=== PATIENT | male | born 1940 | race Caucasian/White ===

== ENCOUNTER 2021-02-07 02:19 | Inpatient (IN) | payer OTHER ==
[~2021-02-07] VITALS: Ht 190.5 cm; Wt 136.9 kg
--- NOTE | 2021-02-07 02:38 | NUR ---
pt bib [facility], pt complaint of weakness and multiple falls tonight, [facility] [place] di[facility] [place]. pt in gown, on gurney and placed on continuous monitoring.
--- NOTE | 2021-02-07 02:49 | NUR ---
PT AT CT
[2021-02-07 02:52] LABS: BASOPHILS % (AUTO) 1 % (0-1); EOSINOPHILS % (AUTO) 1 % (1-7); LYMPHOCYTES % (AUTO) 21 % (22-44); MEAN CORPUSCULAR HEMOGLOBIN 32.7 pg (27.5-34.5); MEAN CORPUSCULAR HGB CONC 33.4 g/dL (33.2-36.2); MEAN PLATELET VOLUME 9.1 fL (7.4-10.4); MONOCYTES % (AUTO) 2 % (2-9); NEUTROPHILS % (AUTO) 75 % (42-75); PLATELET COUNT 86 x10^3/uL (130-400); RED BLOOD COUNT 3.63 x10^6/uL (4.38-5.82); RED CELL DISTRIBUTION WIDTH 14.5 % (9.4-14.8)
[2021-02-07 03:03] LABS: ALBUMIN 2.4 g/dL (3.4-5.0); ANION GAP 10 mmol/L (5-15); CALCIUM 8.8 mg/dL (8.5-10.1); CHLORIDE 112 mmol/L (98-107); CREATININE 2.59 mg/dL (0.7-1.3)
--- NOTE | 2021-02-07 03:03 | NUR ---
pt back from ct, xray present at bedside.
[2021-02-07 03:07] LABS: TROPONIN I < 0.015 ng/mL (0.000-0.045)
--- NOTE | 2021-02-07 03:30 | NUR ---
PT FAILED SWALLOW EVAL, COUGHED A FEW TIMES AFTER DRINKING WATER
--- NOTE | 2021-02-07 03:32 | NUR ---
22 G IV in right forearm
[2021-02-07] MEDS ORDERED: WARF2TAB99 PO (03:39)
[2021-02-07] MEDS ORDERED: ALLO300T PO (03:39)
[2021-02-07] MEDS ORDERED: CALC-171 PO (03:39)
[2021-02-07] MEDS ORDERED: TAMS-11 PO (03:39)
[2021-02-07] MEDS ORDERED: ATOR20TA37 PO (03:39)
[2021-02-07] MEDS ORDERED: METO25TA35 PO (03:39)
[2021-02-07 04:07] LABS: INTERNATIONAL NORMALIZED RATIO 2.79 (0.93-1.1)
[2021-02-07 04:21] LABS: PROTHROMBIN TIME 29.3 Seconds (9.6-11.5)
--- NOTE | 2021-02-07 04:22 | NUR ---
PT ON BEDPAN, CLEANED UP AND REPOSITIONED ON JACOB, DENIES NEEDS AT THIS TIME
[2021-02-07] MEDS ORDERED: SODIUM CHLORIDE 0.9% 1,000ML IVBOLUS ONE (04:30)
--- NOTE | 2021-02-07 05:00 | NUR ---
Pt to be admitted to [facility], room 503. Report called to JUAN MARTÍNEZ.
[2021-02-07 05:01] LABS: MICROSCOPIC INDICATED
[2021-02-07] MEDS ORDERED: DOCUSATE 100 MG CAPSULE PO PRN (05:30)
[2021-02-07] MEDS ORDERED: morphine SULFATE 10 MG/ML, 1ML IVPush PRN (05:30)
[2021-02-07] MEDS ORDERED: HYDROcodone/APAP 5/325 TABLET PO PRN (05:30)
[2021-02-07] MEDS ORDERED: BACLOFEN 10 MG TABLET PO PRN (05:30)
[2021-02-07] MEDS ORDERED: ONDANSETRON 2MG/ML, 2ML IVPush PRN (05:30)
[2021-02-07] MEDS ORDERED: ENALAPRILAT 1.25 MG/ML, 2ML IVPush PRN (05:30)
[2021-02-07] MEDS ORDERED: TEMAZEPAM 15 MG CAPSULE PO PRN (05:30)
[2021-02-07] MEDS ORDERED: GUAIFENESIN/DM 200-20MG, 10ML UDC PO PRN (05:30)
[2021-02-07] MEDS ORDERED: ACETAMINOPHEN 325 MG TABLET PO PRN (05:30)
[2021-02-07 06:15] VITALS: BP 116/69
[2021-02-07 07:08] VITALS: BP 104/78
[2021-02-07] MEDS ORDERED: FUROSEMIDE 40 MG/4 ML IV SCH (07:30)
[2021-02-07] MEDS ORDERED: METOPROLOL TARTRATE 25 MG TAB PO SCH ×2 (09:00→18:00)
[2021-02-07] MEDS: CALCIUM/VITAMIN D3 250-125 TABLET PO SCH ×3 (10:10→20:38)
[2021-02-07] MEDS: TAMSULOSIN 0.4 MG CAP.ER.24H PO SCH (10:10)
[2021-02-07] MEDS ORDERED: FUROSEMIDE 40 MG/4 ML IV ONE (10:30)
[2021-02-07] MEDS: METOPROLOL TARTRATE 25 MG TAB PO SCH ×2 (11:38→18:20)
[2021-02-07 12:54] VITALS: BP 103/67
[2021-02-07 13:09] LABS: OCCULT BLOOD POSITIVE (NEGATIVE)
[2021-02-07 13:31] LABS: STOOL FOR LEUKOCYTES NONE SEEN (NEGATIVE)
[2021-02-07 13:33] LABS: CLOSTRIDIUM DIFFICILE ANTIGEN NEGATIVE; CLOSTRIDIUM DIFFICILE TOXIN NEGATIVE (Negative)
[2021-02-07] MEDS: WARFARIN 2 MG TABLET PO-COUM SCH (18:22)
[2021-02-07 19:12] VITALS: BP 109/66
[2021-02-07] MEDS: ATORVASTATIN 20 MG TABLET PO SCH (20:38)
[2021-02-08 01:37] VITALS: BP 110/67
[2021-02-08 05:08] LABS: BASOPHILS % (AUTO) 1 % (0-1); EOSINOPHILS % (AUTO) 2 % (1-7); LYMPHOCYTES % (AUTO) 33 % (22-44); MEAN CORPUSCULAR HEMOGLOBIN 33.2 pg (27.5-34.5); MEAN PLATELET VOLUME 10.6 fL (7.4-10.4); MONOCYTES % (AUTO) 5 % (2-9); NEUTROPHILS % (AUTO) 59 % (42-75); PLATELET COUNT 66 x10^3/uL (130-400); RED BLOOD COUNT 3.47 x10^6/uL (4.38-5.82); RED CELL DISTRIBUTION WIDTH 14.8 % (9.4-14.8)
[2021-02-08] MEDS: METOPROLOL TARTRATE 25 MG TAB PO SCH (05:10)
[2021-02-08 05:19] LABS: CHLORIDE 113 mmol/L (98-107)
[2021-02-08 05:30] LABS: ALANINE AMINOTRANSFERASE 29 U/L (12-78); ALBUMIN 2.2 g/dL (3.4-5.0); ALKALINE PHOSPHATASE 106 U/L (45-117); ANION GAP 8 mmol/L (5-15); BILIRUBIN,TOTAL 0.3 mg/dL (0.2-1.0); CALCIUM 8.9 mg/dL (8.5-10.1); TOTAL PROTEIN 5.2 g/dL (6.4-8.2)
[2021-02-08 06:52] VITALS: BP 105/64
[2021-02-08] MEDS ORDERED: SODIUM CHLORIDE 0.9%, 500ML IVBOLUS ONE ×2 (07:30→15:00)
[2021-02-08] MEDS ORDERED: METOLAZONE 5 MG TABLET PO SCH (07:30)
[2021-02-08] MEDS: TAMSULOSIN 0.4 MG CAP.ER.24H PO SCH (07:40)
[2021-02-08] MEDS: CALCIUM/VITAMIN D3 250-125 TABLET PO SCH ×3 (07:59→20:32)
[2021-02-08] MEDS ORDERED: PHYTONADIONE 10 MG/ML, 1ML IM ONE (08:00)
[2021-02-08] MEDS ORDERED: FUROSEMIDE 40 MG/4 ML IV SCH (09:00)
[2021-02-08 09:05] LABS: INTERNATIONAL NORMALIZED RATIO 3.87 (0.93-1.1)
[2021-02-08 09:32] LABS: PROTHROMBIN TIME 40.3 Seconds (9.6-11.5)
[2021-02-08 14:00] VITALS: BP 104/64
[2021-02-08] MEDS: SODIUM CHLORIDE 0.9% 1,000 ML IV SCH (14:56)
[2021-02-08] MEDS ORDERED: GOLYTELY 4,000ML ORAL.SOL PO SCH (15:00)
[2021-02-08 18:31] VITALS: BP 116/70
[2021-02-08] MEDS: ATORVASTATIN 20 MG TABLET PO SCH (20:32)
[2021-02-09 00:59] VITALS: BP 95/52
[2021-02-09] MEDS: SODIUM CHLORIDE 0.9% 1,000 ML IV SCH ×2 (04:20→16:38)
[2021-02-09 05:42] LABS: CHLORIDE 115 mmol/L (98-107)
[2021-02-09 05:47] LABS: ALANINE AMINOTRANSFERASE 42 U/L (12-78); ALKALINE PHOSPHATASE 113 U/L (45-117); ANION GAP 7 mmol/L (5-15); CALCIUM 8.1 mg/dL (8.5-10.1); CREATININE 1.79 mg/dL (0.7-1.3); TOTAL PROTEIN 5.1 g/dL (6.4-8.2)
[2021-02-09 06:05] LABS: BASOPHILS % (AUTO) 1 % (0-1); EOSINOPHILS % (AUTO) 2 % (1-7); LYMPHOCYTES % (AUTO) 29 % (22-44); MEAN CORPUSCULAR HEMOGLOBIN 33.1 pg (27.5-34.5); MEAN CORPUSCULAR HGB CONC 33.7 g/dL (33.2-36.2); MEAN PLATELET VOLUME 9.8 fL (7.4-10.4); MONOCYTES % (AUTO) 8 % (2-9); NEUTROPHILS % (AUTO) 60 % (42-75); PLATELET COUNT 55 x10^3/uL (130-400); RED BLOOD COUNT 3.19 x10^6/uL (4.38-5.82); RED CELL DISTRIBUTION WIDTH 14.4 % (9.4-14.8)
[2021-02-09 06:50] VITALS: BP 106/63
[2021-02-09] MEDS ORDERED: PHYTONADIONE 10 MG/ML, 1ML IM ONE (07:00)
[2021-02-09] MEDS: CALCIUM/VITAMIN D3 250-125 TABLET PO SCH ×3 (07:18→20:19)
[2021-02-09] MEDS: TAMSULOSIN 0.4 MG CAP.ER.24H PO SCH (07:50)
[2021-02-09 07:54] LABS: INTERNATIONAL NORMALIZED RATIO 1.79 (0.93-1.1); PROTHROMBIN TIME 18.9 Seconds (9.6-11.5)
[2021-02-09 12:58] VITALS: BP 107/65
[2021-02-09] MEDS ORDERED: PROPOFOL 10 MG/ML, 20ML ONE (14:27)
[2021-02-09] MEDS ORDERED: FENTANYL PF 100 MCG/2ML IV PRN (15:00)
[2021-02-09] MEDS ORDERED: OXYcodone 5 MG/5 ML ORAL.SOL UDC PO PRN (15:00)
[2021-02-09] MEDS ORDERED: ACETAMINOPHEN 325 MG TABLET PO PRN (15:00)
[2021-02-09 19:27] VITALS: BP 103/63
[2021-02-09] MEDS: ATORVASTATIN 20 MG TABLET PO SCH (20:18)
[2021-02-09 23:22] VITALS: BP 103/59
[2021-02-10 05:07] LABS: BASOPHILS % (AUTO) 0 % (0-1); EOSINOPHILS % (AUTO) 2 % (1-7); LYMPHOCYTES % (AUTO) 29 % (22-44); MEAN CORPUSCULAR HEMOGLOBIN 32.9 pg (27.5-34.5); MEAN CORPUSCULAR HGB CONC 34.1 g/dL (33.2-36.2); MEAN PLATELET VOLUME 10.4 fL (7.4-10.4); MONOCYTES % (AUTO) 10 % (2-9); NEUTROPHILS % (AUTO) 60 % (42-75); PLATELET COUNT 55 x10^3/uL (130-400); RED CELL DISTRIBUTION WIDTH 14.3 % (9.4-14.8)
[2021-02-10 05:12] LABS: CHLORIDE 118 mmol/L (98-107)
[2021-02-10 05:29] LABS: ALANINE AMINOTRANSFERASE 40 U/L (12-78); ALBUMIN 1.9 g/dL (3.4-5.0); ALKALINE PHOSPHATASE 115 U/L (45-117); ANION GAP 7 mmol/L (5-15); CREATININE 1.56 mg/dL (0.7-1.3); TOTAL PROTEIN 4.6 g/dL (6.4-8.2)
[2021-02-10] MEDS: SODIUM CHLORIDE 0.9% 1,000 ML IV SCH (05:57)
[2021-02-10 07:02] VITALS: BP 95/56
[2021-02-10 08:14] LABS: INTERNATIONAL NORMALIZED RATIO 1.33 (0.93-1.1); PROTHROMBIN TIME 14.2 Seconds (9.6-11.5)
[2021-02-10] MEDS: TAMSULOSIN 0.4 MG CAP.ER.24H PO SCH (08:57)
[2021-02-10] MEDS: CALCIUM/VITAMIN D3 250-125 TABLET PO SCH ×3 (08:57→20:07)
[2021-02-10 12:19] VITALS: BP 109/68
[2021-02-10] MEDS: WARFARIN 2 MG TABLET PO-COUM SCH (17:36)
[2021-02-10 19:22] VITALS: BP 107/70
[2021-02-10] MEDS: ATORVASTATIN 20 MG TABLET PO SCH (20:07)
[2021-02-10 23:18] VITALS: BP 97/68
[2021-02-11] VITALS (9 sets, daily range): BP systolic 100–129; BP diastolic 55–90
[2021-02-11] MEDS: SODIUM CHLORIDE 0.9% 1,000 ML IV SCH (03:24)
[2021-02-11 06:09] LABS: BASOPHILS % (AUTO) 1 % (0-1); EOSINOPHILS % (AUTO) 3 % (1-7); LYMPHOCYTES % (AUTO) 35 % (22-44); MEAN CORPUSCULAR HEMOGLOBIN 32.9 pg (27.5-34.5); MEAN CORPUSCULAR HGB CONC 33.6 g/dL (33.2-36.2); MEAN PLATELET VOLUME 9.7 fL (7.4-10.4); MONOCYTES % (AUTO) 13 % (2-9); NEUTROPHILS % (AUTO) 49 % (42-75); RED BLOOD COUNT 3.19 x10^6/uL (4.38-5.82); RED CELL DISTRIBUTION WIDTH 14.6 % (9.4-14.8)
[2021-02-11 06:18] LABS: ANION GAP 6 mmol/L (5-15); CHLORIDE 120 mmol/L (98-107)
[2021-02-11 06:21] LABS: ALANINE AMINOTRANSFERASE 42 U/L (12-78); ALKALINE PHOSPHATASE 136 U/L (45-117); BILIRUBIN,TOTAL 0.9 mg/dL (0.2-1.0); CREATININE 1.51 mg/dL (0.7-1.3); TOTAL PROTEIN 4.9 g/dL (6.4-8.2)
[2021-02-11 06:22] LABS: PLATELET COUNT 41 x10^3/uL (130-400)
[2021-02-11] MEDS: CALCIUM/VITAMIN D3 250-125 TABLET PO SCH ×3 (08:44→21:26)
[2021-02-11] MEDS: TAMSULOSIN 0.4 MG CAP.ER.24H PO SCH (08:44)
[2021-02-11 12:08] LABS: HCT (SEDRATE) 28.6 % (39.2-51.8)
[2021-02-11 12:50] LABS: FIBRINOGEN 242 mg/dL (200-340); PARTIAL THROMBOPLASTIN TIME 30 Seconds (25-31)
[2021-02-11] MEDS ORDERED: SODIUM CHLORIDE 0.9% 1,000 ML IV SCH (15:00)
[2021-02-11] MEDS: WARFARIN 2 MG TABLET PO-COUM SCH (17:42)
[2021-02-11] MEDS: ATORVASTATIN 20 MG TABLET PO SCH (21:26)
[2021-02-12 05:33] VITALS: BP 119/77
[2021-02-12 07:40] LABS: BASOPHILS % (AUTO) 1 % (0-1); EOSINOPHILS % (AUTO) 5 % (1-7); LYMPHOCYTES % (AUTO) 36 % (22-44); MEAN CORPUSCULAR HEMOGLOBIN 32.7 pg (27.5-34.5); MEAN CORPUSCULAR HGB CONC 33.3 g/dL (33.2-36.2); MEAN PLATELET VOLUME 9.9 fL (7.4-10.4); MONOCYTES % (AUTO) 12 % (2-9); NEUTROPHILS % (AUTO) 46 % (42-75); PLATELET COUNT 56 x10^3/uL (130-400); RED BLOOD COUNT 3.17 x10^6/uL (4.38-5.82); RED CELL DISTRIBUTION WIDTH 14.4 % (9.4-14.8)
[2021-02-12 07:49] LABS: ALANINE AMINOTRANSFERASE 48 U/L (12-78); ANION GAP 4 mmol/L (5-15); CALCIUM 8.3 mg/dL (8.5-10.1); CHLORIDE 119 mmol/L (98-107); CREATININE 1.36 mg/dL (0.7-1.3)
[2021-02-12 07:51] LABS: ALKALINE PHOSPHATASE 135 U/L (45-117); BILIRUBIN,TOTAL 0.9 mg/dL (0.2-1.0); TOTAL PROTEIN 4.8 g/dL (6.4-8.2)
[2021-02-12] MEDS: TAMSULOSIN 0.4 MG CAP.ER.24H PO SCH (07:51)
[2021-02-12] MEDS: CALCIUM/VITAMIN D3 250-125 TABLET PO SCH ×3 (07:51→19:42)
[2021-02-12 08:38] VITALS: BP 103/65
[2021-02-12] MEDS: PANTOPRAZOLE 40MG TABLET PO SCH (10:04)
[2021-02-12 12:06] VITALS: BP 102/64
[2021-02-12 16:05] LABS: INTERNATIONAL NORMALIZED RATIO 1.17 (0.93-1.1); PROTHROMBIN TIME 12.4 Seconds (9.6-11.5)
[2021-02-12] MEDS ORDERED: WARFARIN 2 MG TABLET PO-COUM ONE (18:00)
[2021-02-12] MEDS ORDERED: WARFARIN 3 MG TABLET PO-COUM ONE (18:00)
[2021-02-12 18:26] VITALS: BP 104/61
[2021-02-12 19:17] VITALS: BP 104/61
[2021-02-12] MEDS: ATORVASTATIN 20 MG TABLET PO SCH (19:42)
[2021-02-13 00:56] VITALS: BP 100/64
[2021-02-13 04:59] LABS: HCT (SEDRATE) 27.5 % (39.2-51.8)
[2021-02-13 05:03] LABS: BASOPHILS % (AUTO) 1 % (0-1); EOSINOPHILS % (AUTO) 4 % (1-7); LYMPHOCYTES % (AUTO) 33 % (22-44); MEAN CORPUSCULAR HEMOGLOBIN 32.9 pg (27.5-34.5); MEAN CORPUSCULAR HGB CONC 34.1 g/dL (33.2-36.2); MEAN PLATELET VOLUME 10.3 fL (7.4-10.4); MONOCYTES % (AUTO) 12 % (2-9); NEUTROPHILS % (AUTO) 50 % (42-75); PLATELET COUNT 74 x10^3/uL (130-400); RED BLOOD COUNT 2.85 x10^6/uL (4.38-5.82); RED CELL DISTRIBUTION WIDTH 14.3 % (9.4-14.8)
[2021-02-13 05:10] LABS: INTERNATIONAL NORMALIZED RATIO 1.17 (0.93-1.1); PROTHROMBIN TIME 12.4 Seconds (9.6-11.5)
[2021-02-13 05:11] LABS: ALANINE AMINOTRANSFERASE 47 U/L (12-78); ALBUMIN 1.8 g/dL (3.4-5.0); ANION GAP 8 mmol/L (5-15); C-REACTIVE PROTEIN, QUANT 0.46 mg/dL (0.02-0.49); CALCIUM 7.9 mg/dL (8.5-10.1); CHLORIDE 115 mmol/L (98-107); CREATININE 1.36 mg/dL (0.7-1.3)
[2021-02-13 05:13] LABS: ALKALINE PHOSPHATASE 136 U/L (45-117); BILIRUBIN,TOTAL 0.7 mg/dL (0.2-1.0); TOTAL PROTEIN 4.6 g/dL (6.4-8.2)
[2021-02-13] MEDS: PANTOPRAZOLE 40MG TABLET PO SCH (06:17)
[2021-02-13] MEDS ORDERED: PANT40TA6 PO (08:00)
[2021-02-13] MEDS ORDERED: WARF2TAB99 PO (08:00)
[2021-02-13] MEDS ORDERED: METO25TA35 PO (08:00)
[2021-02-13 08:24] VITALS: BP 110/66
[2021-02-13] MEDS: CALCIUM/VITAMIN D3 250-125 TABLET PO SCH (09:00)
[2021-02-13] MEDS: TAMSULOSIN 0.4 MG CAP.ER.24H PO SCH (09:22)
[2021-02-13] MEDS ORDERED: WARFARIN 5 MG TABLET PO-COUM ONE (18:00)
== END 2021-02-13 14:44 | disposition home health service (06) | DRG 377 ==
LOC: ED 04:49 → EDIP 04:54 → 5SO 05:28
PROVIDERS: ADMIT Internal Medicine; ATTEND Family Medicine
PROC: 0DJD8ZZ Inspection of Lower Intestinal Tract, Via Natural or Artificial Opening Endoscopic (ICD-10-PCS; 2021-02-09)
PROC: 0DJ08ZZ Inspection of Upper Intestinal Tract, Via Natural or Artificial Opening Endoscopic (ICD-10-PCS; principal; 2021-02-09 14:00)
DX: K26.4 Chronic or unspecified duodenal ulcer with hemorrhage (principal); N17.0 Acute kidney failure with tubular necrosis; I13.0 Hypertensive heart and chronic kidney disease with heart failure and stage 1 through stage 4 chronic kidney disease, or unspecified chronic kidney disease; I48.20 Chronic atrial fibrillation, unspecified; M86.8X7 Other osteomyelitis, ankle and foot; E46 Unspecified protein-calorie malnutrition; I95.1 Orthostatic hypotension; Z20.822 Contact with and (suspected) exposure to COVID-19; D53.9 Nutritional anemia, unspecified; D50.9 Iron deficiency anemia, unspecified; D69.6 Thrombocytopenia, unspecified; E66.9 Obesity, unspecified; E78.5 Hyperlipidemia, unspecified; E87.8 Other disorders of electrolyte and fluid balance, not elsewhere classified; N18.30 Chronic kidney disease, stage 3 unspecified; G47.33 Obstructive sleep apnea (adult) (pediatric); G89.11 Acute pain due to trauma; I50.9 Heart failure, unspecified; K64.4 Residual hemorrhoidal skin tags; K57.30 Diverticulosis of large intestine without perforation or abscess without bleeding; G62.9 Polyneuropathy, unspecified; J44.9 Chronic obstructive pulmonary disease, unspecified; K57.31 Diverticulosis of large intestine without perforation or abscess with bleeding; K44.9 Diaphragmatic hernia without obstruction or gangrene; M10.9 Gout, unspecified; W18.39XA Other fall on same level, initial encounter; N40.0 Benign prostatic hyperplasia without lower urinary tract symptoms; Z79.01 Long term (current) use of anticoagulants; Z80.3 Family history of malignant neoplasm of breast; Z82.49 Family history of ischemic heart disease and other diseases of the circulatory system; Z86.14 Personal history of Methicillin resistant Staphylococcus aureus infection; Z87.440 Personal history of urinary (tract) infections; Z87.891 Personal history of nicotine dependence; Z95.0 Presence of cardiac pacemaker; Y93.89 Activity, other specified; Y92.89 Other specified places as the place of occurrence of the external cause; Y99.8 Other external cause status; Z68.37 Body mass index [BMI] 37.0-37.9, adult; Z79.899 Other long term (current) drug therapy; Z90.49 Acquired absence of other specified parts of digestive tract
CPT/HCPCS: 36415; 70450; 71045; 72125; 80048; 80053; 81001; 82040; 82272; 82542; 83735; 83880; 84100; 84443; 84484; 85014; 85018; 85025; 85347; 85384; 85576; 85610; 85651; 85730; 86140; 87070; 87086; 87106; 87205; 87324; 87635; 89055; 93005; 93306; 93880; 94660; 96374; 99285; G0378; J1940; J2704; J3430; J7030; J7040